=== PATIENT | male | born 1995 | race Caucasian/White ===

== ENCOUNTER 2019-02-08 23:46 | Emergency (ER) | payer BC ==
[2019-02-09] MEDS ORDERED: NS 1,000 ML IV ONE (00:37)
[2019-02-09 00:45] LABS: PLATELET COUNT 227 10^3/uL (150-400)
--- NOTE | 2019-02-09 00:56 | EDPHY ---
H & P Stated Complaint: ETOH TONIGHT , VOMITING Time Seen by Provider: 02/09/19 00:12 HPI/ROS: HPI The patient presents with vomiting which began at about 10:00 p.m. Tonight and consisted of 3 episodes of vomit which appeared to be fluid, undigested food, and a small amount of bright red blood. He had been drinking significant amounts of alcohol throughout the day today. The patient has had no ongoing vomiting over the last 2 hr. He does not have any abdominal pain. He denies any dark or bloody stool. 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 He has been able to take his transplant medications. His baseline creatinine is 1.5-1.65. REVIEW OF SYSTEMS 10 systems were reviewed and negative with the exception of the elements mentioned in the history of present illness. PMHx: Glomerular nephritis, status post kidney transplant performed in 2009 Soc Hx: Here with his partner, college student PHYSICAL General Appearance: Alert, no distress Eyes: Pupils equal and round no pallor or injection ENT, Mouth: Mucous membranes moist Respiratory: There are no retractions, lungs are clear to auscultation Cardiovascular: Regular rate and rhythm Gastrointestinal: Abdomen is soft and non-tender, no masses, bowel sounds normal Neurological: A&O, moves all extremities Skin: Warm and dry, no rashes Musculoskeletal: Neck is supple non tender Extremities: symmetrical, full range of motion Psychiatric: Patient is oriented X 3, there is no agitation Source: Patient Exam Limitations: No limitations - Personal History Current Tetanus/Diphtheria Vaccine: Yes Current Tetanus Diphtheria and Acellular Pertussis (TDAP): Yes - Medical/Surgical History Hx Asthma: No Hx Chronic Respiratory Disease: No Hx Diabetes: No Hx Cardiac Disease: No Hx Renal Disease: Yes Hx Cirrhosis: No Hx Alcoholism: No Hx HIV/AIDS: No Hx Splenectomy or Spleen Trauma: No Other PMH: KIDNEY TRANSPLANT. VASCULITIS - Social History Smoking Status: Never smoked Constitutional: Initial Vital Signs Temperature (C) 36.6 C 02/08/19 23:48 Heart Rate 78 02/08/19 23:48 Respiratory Rate 18 02/08/19 23:48 Blood Pressure 147/87 H 02/08/19 23:48 O2 Sat (%) 95 02/08/19 23:48 O2 Delivery Mode Room Air Allergies/Adverse Reactions: No Known Allergies Allergy (Unverified 02/08/19 23:52) Home Medications: Medication Instructions Recorded Losartan Potassium [Cozaar] 25 mg PO BID 02/08/19 Mycophenolate Mofetil HCl 1,000 mg IV BID 02/08/19 [Cellcept Injection (RX)] Sulfamethox/Tmp 800/160 mg 1 tab PO DAILY 02/08/19 [Bactrim Ds] Tacrolimus [Prograf] 2 mg PO Q12H 02/08/19 Medical Decision Making Differential Diagnosis: 23-year-old male with history of renal transplant about 9 years ago with history of glomerular nephritis, presents with several episodes of vomiting in the setting of drinking alcohol with blood tinged. Here, vital signs are normal, he does not have any ongoing symptoms. His abdominal exam is benign. Suspect Rachele-Guzmán tear, would also consider alcoholic gastritis, less likely esophageal varices. In the emergency department, patient received IV fluids. CBC was unremarkable, I do not have a hemoglobin at baseline. As creatinine is elevated at 1.6, however per his report this is his baseline. He will be discharged home with instructions for famotidine and Zofran as needed. - Data Points Laboratory Results: Laboratory Results 02/09/19 00:05 02/09/19 00:05 02/09/19 02/09/19 00:05 00:05 WBC 6.29 10^3/uL 10^3/uL (3.80-9.50) RBC 5.25 10^6/uL 10^6/uL (4.40-6.38) Hgb 15.2 g/dL g/dL (13.7-17.5) Hct 44.4 % % (40.0-51.0) MCV 84.6 fL fL (81.5-99.8) MCH 29.0 pg pg (27.9-34.1) MCHC 34.2 g/dL g/dL (32.4-36.7) RDW 13.1 % % (11.5-15.2) Plt Count 227 10^3/uL 10^3/uL (150-400) MPV 9.5 fL fL (8.7-11.7) Neut % (Auto) 61.0 % % (39.3-74.2) Lymph % (Auto) 25.9 % % (15.0-45.0) [place] % (Auto) 8.4 % % (4.5-13.0) Eos % (Auto) 3.2 % % (0.6-7.6) Baso % (Auto) 1.0 % % (0.3-1.7) Nucleat RBC Rel Count 0.0 % % (0.0-0.2) Absolute Neuts (auto) 3.84 10^3/uL 10^3/uL (1.70-6.50) Absolute Lymphs (auto) 1.63 10^3/uL 10^3/uL (1.00-3.00) Absolute Monos (auto) 0.53 10^3/uL 10^3/uL (0.30-0.80) Absolute Eos (auto) 0.20 10^3/uL 10^3/uL (0.03-0.40) Absolute Basos (auto) 0.06 10^3/uL 10^3/uL (0.02-0.10) Absolute Nucleated RBC 0.00 10^3/uL 10^3/uL (0-0.01) Immature Gran % 0.5 % % (0.0-1.1) Immature Gran # 0.03 10^3/uL 10^3/uL (0.00-0.10) Sodium 142 mEq/L mEq/L (135-145) Potassium 3.6 mEq/L mEq/L (3.5-5.2) Chloride 108 mEq/L mEq/L (97-110) Carbon Dioxide 21 mEq/l L mEq/l (22-31) Anion Gap 13 mEq/L mEq/L (6-14) BUN 22 mg/dL mg/dL (7-23) Creatinine 1.6 mg/dL H mg/dL (0.7-1.3) Estimated GFR 54 Glucose 102 mg/dL H mg/dL (70-100) Calcium 9.2 mg/dL mg/dL (8.5-10.4) Medications Given: Discontinued Medications Sodium Chloride (Ns) 1,000 mls @ 0 mls/hr IV EDNOW ONE; Wide Open PRN Reason: Protocol Stop: 02/09/19 00:38 Last Admin: 02/09/19 00:37 Dose: 1,000 mls Departure - Departure Disposition: Home, Routine, Self-Care Clinical Impression: Status post kidney transplant Vomiting blood Qualifiers: Nausea presence: with nausea Qualified Code(s): K92.0 - Hematemesis Condition: Good Instructions: Acute Nausea and Vomiting (ED) Additional Instructions: Please avoid alcohol. Make sure to drink plenty of fluids. Return to the ER if your worse in any way. Referrals: Zulema Busby MD [Medical Doctor] - As per Instructions
[2019-02-09 01:12] VITALS: BP 129/79
== END 2019-02-09 01:55 | disposition home or self-care (01) ==
DX: K92.0 Hematemesis (principal); F10.99 Alcohol use, unspecified with unspecified alcohol-induced disorder; E86.9 Volume depletion, unspecified; Z94.0 Kidney transplant status